=== PATIENT | male | born 1955 | race Hispanic/Latino ===

== ENCOUNTER 2018-06-24 08:50 | Outpatient (CLI) | payer OTHER ==
--- NOTE | 2018-06-24 09:48 | Ultrasound Report ---
ULTRASOUND LEFT UPPER EXTREMITY: 06/24/18 CLINICAL: A palpable soft tissue mass of the left upper posterior arm. FINDINGS: High-resolution ultrasound of the left upper extremity demonstrated an oval solid heterogeneous hypoechoic relatively smooth mass corresponding to the palpable lump. It measures 2.8 x 1.4 x 1.8 cm. The mass demonstrates blood flow by color Doppler and has a central anechoic component with no blood flow. The mass is adjacent to the brachial artery. IMPRESSION: A 2.8 cm predominantly solid left upper arm soft tissue mass with significant vascularity. Sarcoma is a prime consideration. Consider MRI of the upper extremity without and with contrast to better evaluate the relationship of the mass to adjacent structures.
== END 2018-06-24 08:51 | disposition home or self-care (01) ==
LOC: SPVWC 08:50
PROVIDERS: ATTEND Family Medicine
DX: R22.32 Localized swelling, mass and lump, left upper limb (principal); E78.5 Hyperlipidemia, unspecified; I25.810 Atherosclerosis of coronary artery bypass graft(s) without angina pectoris; I10 Essential (primary) hypertension; E78.00 Pure hypercholesterolemia, unspecified; M19.90 Unspecified osteoarthritis, unspecified site; F17.210 Nicotine dependence, cigarettes, uncomplicated; Z90.89 Acquired absence of other organs

== ENCOUNTER 2018-06-30 20:40 | Emergency (ER) | payer OTHER ==
--- NOTE | 2018-07-01 03:51 | Emergency Department Report ---
ED General Adult HPI - General Chief complaint: Extremity Injury, Upper Stated complaint: LUMP UNDER LEFT ARM/ PAINFUL Source: patient, RN notes reviewed Mode of arrival: Ambulatory Limitations: No Limitations - History of Present Illness Initial comments: This is a 62-year-old gentleman who is not known to this provider previously, who presents to the ER with a complaint of lump underneath his left arm for 6 months, and paresthesias on the distal aspect of his left upper extremity for 6 months. The symptoms are intermittent, do not radiate anywhere except distal, do not have exacerbating or relieving factors. His primary care doctor has scheduled an outpatient MRI for him in August, but he comes to the ER for a second opinion to see if an MRI might be obtained more expediently. He denies headache, neck pain, chest pain, abdominal pain, shortness of breath, weakness, bladder or bowel retention or incontinence. -: Gradual, month(s) Location: left, upper extremity Radiation: extremity Quality: other Consistency: other Improves with: other Worsens with: other Associated Symptoms: denies other symptoms - Related Data Home Medications Medication Instructions Recorded Confirmed Last Taken Aspirin [Aspirin BABY CHEW TAB] 81 mg PO DAILY 09/14/14 09/14/14 09/14/14 05:00 81mg Atorvastatin [Lipitor] 80 mg PO QHS 09/14/14 09/14/14 09/13/14 Clopidogrel Bisulfate [Clopidogrel] 75 mg PO DAILY 09/14/14 09/14/14 09/14/14 05 :00 Gabapentin 100 mg PO DAILY 09/14/14 09/14/14 09/14/14 Nebivolol HCl [Bystolic] 2.5 mg PO DAILY 09/14/14 09/14/14 09/14/14 Allergies Allergy/AdvReac Type Severity Reaction Status Date / Time No Known Allergies Allergy Verified 09/14/14 06:48 ED Review of Systems ROS: Stated complaint: LUMP UNDER LEFT ARM/ PAINFUL Other details as noted in HPI Constitutional: denies: fever Eyes: denies: eye discharge ENT: denies: epistaxis Respiratory: denies: cough Cardiovascular: denies: chest pain Genitourinary: denies: dysuria Musculoskeletal: myalgia Neurological: paresthesias. denies: weakness ED Past Medical Hx - Past Medical History Hx Hypertension: Yes Hx Heart Attack/AMI: Yes Hx Arthritis: Yes (back, knees) - Surgical History Hx Open Heart Surgery: Yes - Social History Smoking Status: Current Every Day Smoker Substance Use Type: Alcohol - Medications Home Medications: Home Medications Medication Instructions Recorded Confirmed Last Taken Type Aspirin [Aspirin BABY CHEW TAB] 81 mg PO DAILY 09/14/14 09/14/14 09/14/14 05:00 History 81mg Atorvastatin [Lipitor] 80 mg PO QHS 09/14/14 09/14/14 09/13/14 History Clopidogrel Bisulfate [Clopidogrel] 75 mg PO DAILY 09/14/14 09/14/14 09/14/14 05 :00 History Gabapentin 100 mg PO DAILY 09/14/14 09/14/14 09/14/14 History Nebivolol HCl [Bystolic] 2.5 mg PO DAILY 09/14/14 09/14/14 09/14/14 History ED Physical Exam - General Limitations: No Limitations General appearance: alert, in no apparent distress - Head Head exam: Present: atraumatic, normocephalic - Eye Eye exam: Present: normal appearance, EOMI. Absent: nystagmus - ENT ENT exam: Present: normal exam, normal orophraynx, mucous membranes moist, normal external ear exam - Neck Neck exam: Present: normal inspection, full ROM. Absent: tenderness, meningismus - Respiratory Respiratory exam: Present: normal lung sounds bilaterally. Absent: respiratory distress - Cardiovascular Cardiovascular Exam: Present: regular rate, normal rhythm, normal heart sounds. Absent: bradycardia, tachycardia, irregular rhythm, systolic murmur, diastolic murmur, rubs, gallop - GI/Abdominal GI/Abdominal exam: Present: soft, normal bowel sounds. Absent: distended, tenderness, guarding, rebound, rigid, pulsatile mass - Rectal Rectal exam: Present: deferred - Extremities Exam Extremities exam: Present: normal inspection (on the left upper extremity, medial bicep, there is a well-circumscribed nontender 2 x 2 centimeter soft tissue density appreciated.), full ROM (sensation is intact to light touch in the bilateral deltoid, median, radial, ulnar distribution.), normal capillary refill, other (2+ pulses noted in the bilateral upper, lower extremities. Compartments soft. No long bony tenderness. The pelvis is stable.). Absent: tenderness, pedal edema, joint swelling, calf tenderness - Back Exam Back exam: Present: normal inspection, full ROM. Absent: tenderness, CVA tenderness (R), paraspinal tenderness, vertebral tenderness - Neurological Exam Neurological exam: Present: alert, oriented X3, CN II-XII intact, normal gait, other (Extraocular movements intact. Tongue midline. No facial droop. Facial sensation intact to light touch in the V1, V2, V3 distribution bilaterally. 5 and 5 strength in 4 extremities.. Sensation is intact to light touch in 4 extremities.). Absent: motor sensory deficit (downgoing plantar reflexes in the bilateral lower extremities. There is no clonus, there is no hyperreflexia noted.) - Psychiatric Psychiatric exam: Present: normal affect, normal mood - Skin Skin exam: Present: warm, dry, intact, normal color. Absent: rash ED Course Vital Signs 06/30/18 06/30/18 07/01/18 20:56 21:04 03:55 Temperature 98.5 F 98.5 F 97.8 F Pulse Rate 63 63 61 Respiratory 16 18 16 Rate Blood Pressure 144/72 144/72 Blood Pressure 147/89 [Right] O2 Sat by Pulse 97 98 98 Oximetry - Reevaluation(s) Reevaluation #1: 07/01/18 04:14 The patient declined pain medication. ED Medical Decision Making - Lab Data Vital Signs 06/30/18 06/30/18 20:56 21:04 Temperature 98.5 F 98.5 F Pulse Rate 63 63 Respiratory 16 18 Rate Blood Pressure 144/72 144/72 O2 Sat by Pulse 97 98 Oximetry - Medical Decision Making Differential diagnosis, including but not limited to: Peripheral neuropathy, soft tissue mass/lesion, sarcoma, neuropathic pain Assessment and plan: 62-year-old male with a complaint of 6 months ulnar neuropathy. He is afebrile with reassuring vital signs, and his physical examination history did not support a diagnosis of cervical compression syndrome , compartment syndrome, or cellulitis. The patient is counseled that based on his history and physical he does not require emergent imaging at this time, and he can follow up with his outpatient primary care doctor for scheduled outpatient imaging. There does not appear to be an emergent medical condition at this time, the patient is medically suitable to follow-up as an outpatient with his primary care doctor. Critical care attestation.: If time is entered above; I have spent that time in minutes in the direct care of this critically ill patient, excluding procedure time. ED Disposition Clinical Impression: Peripheral neuropathy Disposition: DC-01 TO HOME OR SELFCARE Is pt being admited?: No Does the pt Need Aspirin: No Condition: Good Instructions: Peripheral Neuropathy (ED) Additional Instructions: Continue current outpatient medications. Follow up with her primary care doctor in the next 2-3 weeks. Return to the ER right away with fevers, chills, lethargy, irritability, projectile vomiting, change in mental status, confusion , inability to tolerate liquid feeds. Referrals: PRIMARY CARE, [Primary Care Provider] - 3-5 Days
[2018-07-01 04:27] VITALS: BP 147/89
== END 2018-07-01 04:26 | disposition home or self-care (01) ==
LOC: ED 20:40
DX: G62.9 Polyneuropathy, unspecified (principal); F17.200 Nicotine dependence, unspecified, uncomplicated; I10 Essential (primary) hypertension; I25.2 Old myocardial infarction; M13.862 Other specified arthritis, left knee; M13.861 Other specified arthritis, right knee; M13.88 Other specified arthritis, other site; Z98.890 Other specified postprocedural states; Z79.899 Other long term (current) drug therapy
CPT/HCPCS: 99282